=== PATIENT | female | born 1965 | race African-American/Black ===

== ENCOUNTER 2023-08-26 10:36 | Emergency (ER) | payer OTHER ==
[2023-08-26] MEDS ORDERED: Ketorolac Tromethamine 30 MG/ML VIAL ONE (12:35)
[2023-08-26] MEDS ORDERED: Dexamethasone 10 MG/ML VIAL ONE (12:35)
== END 2023-08-26 12:38 | disposition home or self-care (01) ==
LOC: CSHERS 10:36
DX: M54.31 Sciatica, right side (principal); G89.29 Other chronic pain; I10 Essential (primary) hypertension; F17.210 Nicotine dependence, cigarettes, uncomplicated; I25.2 Old myocardial infarction; G62.9 Polyneuropathy, unspecified; M06.9 Rheumatoid arthritis, unspecified; M79.7 Fibromyalgia; Z86.73 Personal history of transient ischemic attack (TIA), and cerebral infarction without residual deficits
CPT/HCPCS: 96372; J1100; J1885